=== PATIENT | female | born 1935 | race Caucasian/White ===

== ENCOUNTER → 2017-02-22 | Outpatient (CLI) | payer MEDICARE, BC ==
[~2017-02-22] MED LIST: ACTOS15 MG PO; ACTOS30 MG; ADVIL 200MG TA200 MG PO; ADVIL200 MG PO; ALLEGRA 180MG180 MG PO; AMBIEN 10MG10 MG PO; AMBIEN10 MG PO; APRESOLINE 10MG10 MG PO; ASPIRIN 81M81 MG/TA2 PO; ASPIRIN E.C. 8181 MG PO; CALCIUM 600-D 61 TAB PO; CARAFATE 1GM1 G PO; CARAFATE1 GM PO; CATAFLAM50 MG PO; CIPRO 500MG TA500 MG PO; CITALOPRAM20 MG PO; CLEOCIN HCL300 MG PO; CLONAZEPAM0.5 MG PO; COGENTIN .0.5 MG/TAB PO; COGENTIN0.5 MG PO; COLACE 100100 MG/CAP PO; COSAMIN ASU 2001 CAP PO; COSAMIN DS 4001 TAB PO; CRESTOR5 MG PO; DESYREL 100MG100 MG PO; DEXILANT60 MG PO; DITROPAN 5MG TAB5 MG PO; ELDEPRYL 5MG5 MG/CAP PO; ENALAPRIL10 MG PO; FOSAMAX 70MG TA70 MG PO; FOSAMAX70 MG PO; GLUCOPHAGE500 MG/TAB PO; GLUCOSAMINE & C1 CAP PO; GLUCOSAMINE & C1 TAB PO; HCTZ 25MG TAB25 MG PO; HCTZ 25MG25 MG PO; IMODIUM 2MG CAPS2 MG PO; IRON324 M1 PO; K-DUR 10 MEQ T10 MEQ PO; KLONOPIN 0.5MG0.5 MG PO; LEXAPRO10 MG PO; LIPITOR 10MG10 MG PO; LIPITOR 40MG TA40 MG PO; LOMOTIL 0.025 M1 TAB PO; LORTAB 5/500 501 TAB PO; MACRODANTIN25 MG PO; MACRODANTIN50 MG/CA1 PO; MILK OF MA400 MG/52 PO; MIRALAX PA17 GM/Dose PO; MIRAPEX0.5 MG PO; MULTI VITAMINS1 TAB PO; MULTI-VITAMIN W1 TA2 PO; MULTIPLE VITAMI1 CAP PO; MULTIVITAMIN1 CTB PO; NATURAL E400 IU PO; NATURE'S BLEND400 IU PO; NEXIUM 40MG40 MG PO; NITROSTAT0.4 MG/TAB SL; NORCO 325 MG-51 TAB PO; OXYBUTYNIN10 MG PO; PHENERGAN 25 TA25 MG PO; PRAMPEXOLE PO; PREVACID 15MG15 M1; PREVACID 15MG15 M1 PO; PRILOTC PO; PROBIOTIC FORMU1 CAP PO; RISPERDAL2 MG PO; ROXICODONE 55 MG/TAB PO; STOOL SOFTENER100 M1 PO; SUCRALFATE PO; SYNTHROID0.05 MG/TA PO; TRAZODONE50 MG PO; TYLENOL 325MG325 MG PO; ULTRAM 50MG TAB50 MG PO; VASOTEC 10M10 MG/TAB PO; VIACTIV CALCIUM1 CTB PO; VIACTIV CARAMEL PO; VITAMIN D 400400 IU PO; VITAMIN D3400 IU PO; VITAMIN E1000 U/CAP PO; Vitamin E TP; ZOFRAN 4MG T4 MG/TAB PO; ZYRTEC5 M1 PO; [UNRECOGNIZED DRUG - OTHER] PO; [UNRECOGNIZED DRUG - OTHER] PO
== END ==
LOC: SUN.DIA 11:00
DX: Z68.24 Body mass index [BMI] 24.0-24.9, adult (principal); Z71.3 Dietary counseling and surveillance; E78.5 Hyperlipidemia, unspecified; G20 Parkinson's disease; F41.8 Other specified anxiety disorders; F41.0 Panic disorder [episodic paroxysmal anxiety]
CPT/HCPCS: G0108

== ENCOUNTER 2017-03-08 18:41 | Observation (INO) | payer MEDICARE, BC ==
[~2017-03-08] VITALS: Ht 162.6 cm; Wt 67.5 kg
[~2017-03-08 18:41] MED LIST changes: -ALLEGRA 180MG180 MG PO; -APRESOLINE 10MG10 MG PO; -CALCIUM 600-D 61 TAB PO; -CLEOCIN HCL300 MG PO; -GLUCOSAMINE & C1 TAB PO; -MIRALAX PA17 GM/Dose PO; -NITROSTAT0.4 MG/TAB SL; -ROXICODONE 55 MG/TAB PO
[2017-03-08 19:22] LABS: BASO % 0.3 % (0.0-2.0); EOS % 1.1 % (0-4.0); GRAN # 2.5 (1.4-6.5); GRAN % 68.8 % (42.2-75.2); HEMATOCRIT 31.7 % (37.0-47.0); HEMOGLOBIN 10.3 g/dl (12.5-16.0); LYMPH # 0.7 (1.2-3.4); LYMPH % 19.5 % (20.0-51.0); MEAN CELL VOLUME 88 fl (80.0-100.0); MEAN CORPUSCULAR HEMOGLOBIN 29 pg (27.0-31.0); MEAN CORPUSCULAR HGB CONC 33 g/dl (33.0-37.0); MEAN PLATELET VOLUME 10.2 fl (7.4-10.4); MONO # 0.4 (0.1-0.6); MONO % 9.8 % (1.7-9.3); PLATELET COUNT 232 K/mm3 (130-400); RED BLOOD COUNT 3.59 M/mm3 (4.10-5.30); REDCELL DISTRIBUTION WIDTH-CV 15.2 % (11.5-14.5); WHITE BLOOD COUNT 3.7 K/mm3 (4.8-10.8)
[2017-03-08 19:26] LABS: PROTHROMBIN TIME 11.5 SECONDS (9.7-12.8)
[2017-03-08 19:30] LABS: ALANINE AMINOTRANSFERASE 35 U/L (9-52); ALBUMIN 3.5 gm/dL (3.5-5.0); ALKALINE PHOSPHATASE 73 U/L (50-136); ANION GAP 10 mmol/L (7-16); BILIRUBIN,TOTAL 0.4 mg/dL (0.0-1.0); BLOOD UREA NITROGEN 8 mg/dL (7-17); CALCIUM 8.6 mg/dL (8.4-10.2); CARBON DIOXIDE 23 mmol/L (22-30); CHLORIDE 100 mmol/L (98-107); CREATININE, serum 0.75 mg/dL (0.52-1.25); GLUCOSE 98 mg/dL (74-106); LIPASE 39 U/L (23-300); POTASSIUM 4.3 mmol/L (3.4-5.0); SODIUM 133 mmol/L (137-145); TOTAL PROTEIN 5.6 gm/dL (6.4-8.2)
[2017-03-08 19:41] LABS: B-TYPE NATRIURETIC PEPTIDE 71 pg/mL (0-450); TROPONIN-I < 0.012 ng/mL (0.000-0.034)
[2017-03-08] MEDS ORDERED: VASOTEC 10M10 MG/TAB PO (21:03)
[2017-03-08] MEDS ORDERED: ALLEGRA 180MG180 MG PO (21:12)
[2017-03-08] MEDS ORDERED: RISPERDAL2 MG PO (21:13)
[2017-03-08] MEDS ORDERED: AMBIEN 10MG10 MG PO (21:13)
[2017-03-08] MEDS ORDERED: MIRAPEX0.5 MG PO (21:14)
[2017-03-08] MEDS ORDERED: DEXILANT60 MG PO (21:15)
[2017-03-08 21:48] VITALS: BP 171/80; PULSE 91; TEMP 97.7
[2017-03-08] MEDS ORDERED: ROXICODONE 55 MG/TAB PO (23:05)
[2017-03-08 23:16] LABS: PARTIAL THROMBOPLASTIN TIME 32.9 SECONDS (26.0-37.0)
[2017-03-08 23:35] LABS: MAGNESIUM 2.1 mg/dL (1.6-2.3)
[2017-03-09] VITALS (11 sets, daily range): BP systolic 128–161; BP diastolic 50–89; PULSE 87–117; TEMP 97.4–98.8
[2017-03-09 01:28] LABS: PH 7 (5-8); SQUAMOUS EPITHELIAL 0-2 /hpf; URINE APPEARANCE Clear; URINE BACTERIA Rare /hpf; URINE BILIRUBIN Negative (NEGATIVE); URINE BLOOD Negative (NEGATIVE); URINE COLOR Yellow; URINE GLUCOSE Negative (NEGATIVE); URINE KETONE Negative (NEGATIVE); URINE RBC 0-2 /hpf; URINE UROBILINOGEN Negative (NEGATIVE); URINE WBC 0-2 /hpf
[2017-03-09 06:56] LABS: CHOLESTEROL 92 mg/dL (120-200); HDL CHOLESTEROL 62 mg/dL; LDL CHOLESTEROL 14 mg/dL; TRIGLYCERIDE 81 mg/dL
[2017-03-09 07:03] LABS: TROPONIN-I < 0.012 ng/mL (0.000-0.034)
[2017-03-10 02:50] VITALS: BP 151/72; PULSE 93; TEMP 98.1
[2017-03-10 06:44] LABS: MEAN CELL VOLUME 89 fl (80.0-100.0); MEAN CORPUSCULAR HGB CONC 32 g/dl (33.0-37.0); MEAN PLATELET VOLUME 10.1 fl (7.4-10.4); PLATELET COUNT 209 K/mm3 (130-400); RED BLOOD COUNT 3.48 M/mm3 (4.10-5.30); REDCELL DISTRIBUTION WIDTH-CV 15.3 % (11.5-14.5); WHITE BLOOD COUNT 3.8 K/mm3 (4.8-10.8)
[2017-03-10 06:54] LABS: HEMOGLOBIN 9.9 g/dl (12.5-16.0); MEAN CORPUSCULAR HEMOGLOBIN 28 pg (27.0-31.0)
[2017-03-10 07:01] LABS: CALCIUM 8.5 mg/dL (8.4-10.2); CREATININE, serum 0.56 mg/dL (0.52-1.25); MAGNESIUM 2.1 mg/dL (1.6-2.3); PHOSPHOROUS 3.5 mg/dL (2.5-4.5); POTASSIUM 3.8 mmol/L (3.4-5.0)
[2017-03-10 08:02] VITALS: BP 155/68; PULSE 89; TEMP 97.9
[2017-03-10 11:20] VITALS: BP 141/84; PULSE 93; TEMP 98.4
[2017-03-10] MEDS ORDERED: APRESOLINE 10MG10 MG PO (13:52)
[2017-03-10] MEDS ORDERED: NITROSTAT0.4 MG/TAB SL (14:26)
== END 2017-03-10 15:33 | disposition home or self-care (01) ==
LOC: COL.ER 18:41 → MEDICAL 19:52
PROVIDERS: Emergency Medicine; Internal Medicine; Nurse Practitioner Family
DX: R07.9 Chest pain, unspecified (principal); I49.5 Sick sinus syndrome; R55 Syncope and collapse; Z95.818 Presence of other cardiac implants and grafts; E11.9 Type 2 diabetes mellitus without complications; Z79.84 Long term (current) use of oral hypoglycemic drugs; I10 Essential (primary) hypertension; E78.5 Hyperlipidemia, unspecified; G89.29 Other chronic pain; M54.9 Dorsalgia, unspecified; E03.9 Hypothyroidism, unspecified; G20 Parkinson's disease; M81.0 Age-related osteoporosis without current pathological fracture; R35.0 Frequency of micturition; Z87.440 Personal history of urinary (tract) infections; K64.9 Unspecified hemorrhoids; M54.16 Radiculopathy, lumbar region; F41.9 Anxiety disorder, unspecified; Z96.89 Presence of other specified functional implants; F32.9 Major depressive disorder, single episode, unspecified
CPT/HCPCS: A9502; G0378; J1650; J2270; J2785; J7030

== ENCOUNTER 2017-04-02 08:59 | Day surgery (SDC) | payer MEDICARE, BC ==
[~2017-04-02] VITALS: Ht 162.7 cm; Wt 65.0 kg
[~2017-04-02 08:59] MED LIST changes: +ALLEGRA 180MG180 MG PO; +APRESOLINE 10MG10 MG PO; +NITROSTAT0.4 MG/TAB SL; +ROXICODONE 55 MG/TAB PO
[2017-04-02 10:00] VITALS: BP 147/77; PULSE 100; TEMP 98
[2017-04-02 10:11] LABS: MEAN CELL VOLUME 89 fl (80.0-100.0); MEAN CORPUSCULAR HGB CONC 32 g/dl (33.0-37.0); PLATELET COUNT 258 K/mm3 (130-400); RED BLOOD COUNT 3.81 M/mm3 (4.10-5.30); REDCELL DISTRIBUTION WIDTH-CV 15.8 % (11.5-14.5); WHITE BLOOD COUNT 4.8 K/mm3 (4.8-10.8)
[2017-04-02 10:12] LABS: HEMATOCRIT 33.9 % (37.0-47.0); MEAN CORPUSCULAR HEMOGLOBIN 29 pg (27.0-31.0)
[2017-04-02 10:15] LABS: PROTHROMBIN TIME 11.5 SECONDS (9.7-12.8)
[2017-04-02] MEDS ORDERED: APRESOLINE 10MG10 MG PO (10:26)
[2017-04-02] MEDS ORDERED: IMODIUM 2MG CAPS2 MG PO (10:28)
[2017-04-02] MEDS ORDERED: MIRALAX PA17 GM/Dose PO (10:34)
[2017-04-02] MEDS ORDERED: GLUCOSAMINE & C1 TAB PO (10:34)
[2017-04-02] MEDS ORDERED: CALCIUM 600-D 61 TAB PO (10:35)
[2017-04-02 10:50] LABS: CALCIUM 9.4 mg/dL (8.4-10.2); CREATININE, serum 0.63 mg/dL (0.52-1.25); POTASSIUM 4.1 mmol/L (3.4-5.0)
[2017-04-02 12:06] VITALS: BP 144/81; PULSE 91
[2017-04-02 14:05] VITALS: BP 164/89; PULSE 89
[2017-04-02 19:52] VITALS: BP 121/68; PULSE 96; TEMP 98
[2017-04-02 23:29] VITALS: BP 98/54; PULSE 89; TEMP 97.6
[2017-04-03 03:41] VITALS: BP 114/56; PULSE 83; TEMP 97.9
[2017-04-03 07:58] VITALS: BP 158/80; PULSE 100; TEMP 97.6
[2017-04-03] MEDS ORDERED: CLEOCIN HCL300 MG PO (09:59)
== END 2017-04-03 10:35 | disposition home or self-care (01) ==
LOC: COL.CAR 08:59 → MEDICAL 14:31 → PEDS 14:31 → COL.CAR 04-03 10:35
PROVIDERS: Internal Medicine Interventional Cardiology
DX: I45.5 Other specified heart block (principal); I49.5 Sick sinus syndrome; R60.9 Edema, unspecified
CPT/HCPCS: OP; C1785; C1898; J0690; J2250; J3010; J7030

== ENCOUNTER → 2017-05-07 | Outpatient (CLI) | payer MEDICARE, BC ==
[~2017-05-07] MED LIST changes: +CALCIUM 600-D 61 TAB PO; +CLEOCIN HCL300 MG PO; +GLUCOSAMINE & C1 TAB PO; +MIRALAX PA17 GM/Dose PO
== END ==
LOC: COL.CARD 09:13
DX: R06.02 Shortness of breath (principal)

== ENCOUNTER → 2017-11-01 | Outpatient (CLI) | payer MEDICARE, BC | LOC: SUN.DIA 08:46 | DX: E11.9 Type 2 diabetes mellitus without complications (principal); E78.5 Hyperlipidemia, unspecified; Z68.23 Body mass index [BMI] 23.0-23.9, adult; Z71.3 Dietary counseling and surveillance | CPT/HCPCS: G0108 ==

== ENCOUNTER → 2018-01-20 | Outpatient (CLI) | payer MEDICARE, BC | LOC: COL.RAD 11:30 | DX: M47.816 Spondylosis without myelopathy or radiculopathy, lumbar region (principal); M25.552 Pain in left hip; M25.551 Pain in right hip ==

== ENCOUNTER → 2018-05-02 | Outpatient (CLI) | payer MEDICARE, BC | LOC: SUN.DIA | DX: E11.9 Type 2 diabetes mellitus without complications (principal); E78.5 Hyperlipidemia, unspecified | CPT/HCPCS: G0108 ==

== ENCOUNTER 2018-06-05 09:13 | Observation (INO) | payer MEDICARE, BC ==
[~2018-06-05] VITALS: Ht 162.6 cm; Wt 66.5 kg
[2018-06-05] MEDS ORDERED: ANTIVERT 25MG25 MG PO (09:43)
[2018-06-05 09:46] LABS: BASO % 0.2 % (0.0-2.0); GRAN # 2.9 (1.4-6.5); GRAN % 70.9 % (42.2-75.2); HEMATOCRIT 31.1 % (37.0-47.0); HEMOGLOBIN 9.8 g/dl (12.5-16.0); LYMPH # 0.7 (1.2-3.4); MEAN CELL VOLUME 94 fl (80.0-100.0); MEAN CORPUSCULAR HEMOGLOBIN 30 pg (27.0-31.0); MEAN CORPUSCULAR HGB CONC 32 g/dl (33.0-37.0); MEAN PLATELET VOLUME 10.6 fl (7.4-10.4); MONO # 0.4 (0.1-0.6); MONO % 9.7 % (1.7-9.3); PLATELET COUNT 190 K/mm3 (130-400); RED BLOOD COUNT 3.31 M/mm3 (4.10-5.30); REDCELL DISTRIBUTION WIDTH-CV 13.8 % (11.5-14.5)
[2018-06-05] MEDS ORDERED: TOPROL XL 25MG25 MG PO (09:47)
[2018-06-05] MEDS ORDERED: PROBIOTIC-MAJOR PO (09:50)
[2018-06-05 10:00] LABS: PROTHROMBIN TIME 11.6 SECONDS (9.7-12.8)
[2018-06-05 10:01] LABS: ALANINE AMINOTRANSFERASE 35 U/L (9-52); ALKALINE PHOSPHATASE 65 U/L (50-136); ANION GAP 9 mmol/L (7-16); AST,SGOT 35 U/L (15-37); BILIRUBIN,TOTAL 0.2 mg/dL (0.0-1.0); BLOOD UREA NITROGEN 19 mg/dL (7-17); CALCIUM 8.4 mg/dL (8.4-10.2); CARBON DIOXIDE 25 mmol/L (22-30); CHLORIDE 103 mmol/L (98-107); CREATINE KINASE 38 U/L (30-135); CREATININE, serum 0.73 mg/dL (0.52-1.25); GLUCOSE 89 mg/dL (74-106); LIPASE 30 U/L (23-300); POTASSIUM 4.4 mmol/L (3.4-5.0); SODIUM 136 mmol/L (137-145); TOTAL PROTEIN 5.3 gm/dL (6.4-8.2)
[2018-06-05 10:13] LABS: TROPONIN-I < 0.012 ng/mL (0.000-0.034)
[2018-06-05] MEDS ORDERED: ROXICODONE 55 MG/TAB PO (13:52)
[2018-06-05 13:56] VITALS: BP 149/71; PULSE 100; TEMP 98
[2018-06-05 14:33] LABS: TROPONIN-I < 0.012 ng/mL (0.000-0.034)
[2018-06-05 16:37] VITALS: BP 173/81; PULSE 76; TEMP 97.7
[2018-06-05 16:49] VITALS: BP 143/70
[2018-06-05 19:40] VITALS: BP 116/57; PULSE 81; TEMP 98.4
[2018-06-05 23:21] VITALS: BP 100/47; PULSE 77; TEMP 98
[2018-06-06 03:22] VITALS: BP 135/60; PULSE 81; TEMP 98
[2018-06-06 06:45] LABS: BASO % 0.3 % (0.0-2.0); EOS # 0.1 (0.0-0.7); EOS % 1.3 % (0-4.0); GRAN # 2.8 (1.4-6.5); GRAN % 71.5 % (42.2-75.2); LYMPH # 0.7 (1.2-3.4); LYMPH % 17.5 % (20.0-51.0); MEAN CELL VOLUME 93 fl (80.0-100.0); MEAN CORPUSCULAR HGB CONC 32 g/dl (33.0-37.0); MEAN PLATELET VOLUME 10.8 fl (7.4-10.4); MONO # 0.4 (0.1-0.6); MONO % 9.1 % (1.7-9.3); PLATELET COUNT 194 K/mm3 (130-400); RED BLOOD COUNT 3.16 M/mm3 (4.10-5.30)
[2018-06-06 06:53] LABS: HEMATOCRIT 29.4 % (37.0-47.0); HEMOGLOBIN 9.5 g/dl (12.5-16.0); MEAN CORPUSCULAR HEMOGLOBIN 30 pg (27.0-31.0)
[2018-06-06 07:15] LABS: CALCIUM 8.3 mg/dL (8.4-10.2); CHOLESTEROL RISK RATIO 1.4; CREATININE, serum 0.64 mg/dL (0.52-1.25); POTASSIUM 4.2 mmol/L (3.4-5.0)
[2018-06-06 07:46] VITALS: BP 153/84; PULSE 94; TEMP 98
[2018-06-06] MEDS ORDERED: VASOTEC 10M10 MG/TAB PO (10:55)
[2018-06-06 11:54] VITALS: BP 145/75; PULSE 89; TEMP 98.1
== END 2018-06-06 17:56 | disposition home or self-care (01) ==
LOC: COL.ER 09:13 → MEDICAL 11:26
PROVIDERS: Emergency Medicine; Physician Assistant
DX: R55 Syncope and collapse (principal); R09.02 Hypoxemia; K52.9 Noninfective gastroenteritis and colitis, unspecified; I10 Essential (primary) hypertension; I95.9 Hypotension, unspecified; D64.9 Anemia, unspecified; E11.9 Type 2 diabetes mellitus without complications; I49.5 Sick sinus syndrome; F32.9 Major depressive disorder, single episode, unspecified; G20 Parkinson's disease; E78.5 Hyperlipidemia, unspecified; E03.9 Hypothyroidism, unspecified; K21.9 Gastro-esophageal reflux disease without esophagitis; G89.29 Other chronic pain; M54.9 Dorsalgia, unspecified; M81.0 Age-related osteoporosis without current pathological fracture; Z79.84 Long term (current) use of oral hypoglycemic drugs; Z79.3 Long term (current) use of hormonal contraceptives; Z79.82 Long term (current) use of aspirin; Z90.710 Acquired absence of both cervix and uterus; Z90.49 Acquired absence of other specified parts of digestive tract; Z95.0 Presence of cardiac pacemaker; Z88.0 Allergy status to penicillin; Z88.2 Allergy status to sulfonamides; Z82.49 Family history of ischemic heart disease and other diseases of the circulatory system
CPT/HCPCS: G0378; G8978-GP; G8979-GP; J2405; J7030; Q9967

== ENCOUNTER → 2018-08-08 | Outpatient (CLI) | payer MEDICARE, BC ==
[~2018-08-08] MED LIST changes: +ANTIVERT 25MG25 MG PO; +PROBIOTIC-MAJOR PO; +TOPROL XL 25MG25 MG PO
== END ==
LOC: MC.RAD 09:59
DX: Z12.31 Encounter for screening mammogram for malignant neoplasm of breast (principal)

== ENCOUNTER 2019-01-12 16:17 | Observation (INO) | payer MEDICARE, BC ==
[~2019-01-12] VITALS: Ht 165.1 cm; Wt 70.0 kg
[2019-01-12 17:06] LABS: BASO % 0.2 % (0.0-2.0); EOS % 0.7 % (0-4.0); GRAN # 4.5 (1.4-6.5); GRAN % 73.8 % (42.2-75.2); LYMPH # 0.9 (1.2-3.4); LYMPH % 14.9 % (20.0-51.0); MEAN CELL VOLUME 92 fl (80.0-100.0); MEAN CORPUSCULAR HGB CONC 31 g/dl (33.0-37.0); MONO # 0.6 (0.1-0.6); MONO % 10.2 % (1.7-9.3); PLATELET COUNT 170 K/mm3 (130-400); RED BLOOD COUNT 3.46 M/mm3 (4.10-5.30); REDCELL DISTRIBUTION WIDTH-CV 15.6 % (11.5-14.5)
[2019-01-12 17:08] LABS: HEMATOCRIT 31.7 % (37.0-47.0); HEMOGLOBIN 9.8 g/dl (12.5-16.0); MEAN CORPUSCULAR HEMOGLOBIN 28 pg (27.0-31.0)
[2019-01-12 17:13] LABS: PROTHROMBIN TIME 11.8 SECONDS (9.7-12.8)
[2019-01-12 17:25] LABS: ALANINE AMINOTRANSFERASE 31 U/L (9-52); ALBUMIN 3.3 gm/dL (3.5-5.0); ALKALINE PHOSPHATASE 73 U/L (50-136); ANION GAP 7 mmol/L (7-16); AST,SGOT 88 U/L (15-37); BILIRUBIN,TOTAL 0.2 mg/dL (0.0-1.0); BLOOD UREA NITROGEN 30 mg/dL (7-17); CALCIUM 8.7 mg/dL (8.4-10.2); CARBON DIOXIDE 25 mmol/L (22-30); CHLORIDE 100 mmol/L (98-107); CREATININE, serum 1.62 (0.52-1.25); GLUCOSE 97 mg/dL (74-106); POTASSIUM 5.1 mmol/L (3.4-5.0); SODIUM 133 mmol/L (137-145); TOTAL PROTEIN 5.7 gm/dL (6.4-8.2)
[2019-01-12 17:32] LABS: C-REACTIVE PROTEIN < 0.5 mg/dL (0.0-0.9)
[2019-01-12] MEDS ORDERED: ZYLOPRIM 300MG300 MG PO (17:32)
[2019-01-12] MEDS ORDERED: OMNICEF 300MG300 MG PO (17:38)
[2019-01-12] MEDS ORDERED: ZOLOFT 100MG100 MG PO (17:39)
[2019-01-12] MEDS ORDERED: TIROSINT50 MC1 PO (17:51)
[2019-01-12] MEDS ORDERED: ZESTRIL 20MG TA20 MG PO (17:52)
[2019-01-12] MEDS ORDERED: JANTOVEN6 MG (17:53)
[2019-01-12] MEDS ORDERED: COUMADIN 1MG1 MG/TAB PO (17:53)
[2019-01-12] MEDS ORDERED: LOPRESSOR 225 MG/TAB PO (21:28)
[2019-01-13] VITALS (7 sets, daily range): BP systolic 95–166; BP diastolic 40–72; PULSE 79–111; TEMP 97.4–98.7
[2019-01-13 05:50] LABS: BASO % 0.2 % (0.0-2.0); EOS # 0.1 (0.0-0.7); EOS % 1.2 % (0-4.0); GRAN # 2.9 (1.4-6.5); GRAN % 70.6 % (42.2-75.2); LYMPH # 0.7 (1.2-3.4); MEAN CELL VOLUME 92 fl (80.0-100.0); MEAN CORPUSCULAR HGB CONC 31 g/dl (33.0-37.0); MEAN PLATELET VOLUME 10.9 fl (7.4-10.4); MONO # 0.5 (0.1-0.6); MONO % 11.8 % (1.7-9.3); PLATELET COUNT 164 K/mm3 (130-400); RED BLOOD COUNT 3.21 M/mm3 (4.10-5.30); REDCELL DISTRIBUTION WIDTH-CV 15.7 % (11.5-14.5)
[2019-01-13 06:00] LABS: HEMATOCRIT 29.5 % (37.0-47.0); MEAN CORPUSCULAR HEMOGLOBIN 28 pg (27.0-31.0)
[2019-01-13 06:01] LABS: CREATININE, serum 0.86 (0.52-1.25)
--- NOTE | 2019-01-13 07:10 | NUR ---
Received report from Devyn entered room to greet patient and daughter is noted to be at bedside, patient is just waking up. Does not voice any needs at this time. Call light is within reach.
--- NOTE | 2019-01-13 11:54 | NUR ---
Initial visit; Patient thanked [employer] Driver for looking in on her and wishing her well and assuring her someone from the [facility] will offer her [facility] if she is hospitalized over night.
--- NOTE | 2019-01-13 13:11 | NUR ---
SW attended clinical rounds to discuss discharge planning. Patient lives at home with her . Patient does not use any home health services but is interested in receiving those services when she is discharged. Patient will be seen by PT and OT. SW will follow up with patient and family after speaking with PT/OT. Patient uses a walker for mobility but no other DME is reported. Patient's PCP is Dr Lott and she obtains prescriptions from [facility]. Patient does have a DPOA in EMR. SW will follow up with patient later this afternoon.
--- NOTE | 2019-01-13 18:59 | NUR ---
Patient is sitting up in chair eating supper. Has been up to restroom and back to recliner using walker and gait belt. Tolerating well. Has minimal pain complaints after receiving PRN norco, otherwise patient has an uneventful shift. Report given to KELLY Reich.
--- NOTE | 2019-01-13 19:00 | NUR ---
Report received from KELLY Blanchard.
--- NOTE | 2019-01-13 19:26 | NUR ---
Sitting in recliner with [id number] at bedside. Assessment complete. Lungs clear. Heart sounds normal. Bowels active x4. Pulses present. Bilateral lower leg edema +2. Alert x3. Difficulty with day of week. Denies pain. Denies needs at this time. IV to left forearm infusing at 125ml/hr without complications. Call light in reach.
--- NOTE | 2019-01-13 19:45 | NUR ---
Up to restroom and returned to bed.
--- NOTE | 2019-01-13 21:01 | NUR ---
Patient requested mirlax for constipation. Provided PRN order.
[2019-01-14] VITALS (7 sets, daily range): BP systolic 125–169; BP diastolic 51–78; PULSE 70–104; TEMP 97.5–98.7
--- NOTE | 2019-01-14 00:10 | NUR ---
Patient reports feeling "floaty." Blood pressure checked at stable. Reports nausea. Provided with PRN zofran.
--- NOTE | 2019-01-14 02:04 | NUR ---
Verbal order per Alejandra, CONSUMER LENDING MANAGER discontinue fluids IV per patient and family request.
--- NOTE | 2019-01-14 02:44 | NUR ---
Patient reports nausea. Was provided with zofran earlier for nausea. Now feeling "like stuff is crawling on me and I am seeing awful things." Spoke with RYLEE Roberts. Adding order for benadryl to help rest and relieve symptoms. Will closely monitor.
[2019-01-14 06:26] LABS: BASO % 0.2 % (0.0-2.0); LYMPH # 0.7 (1.2-3.4); LYMPH % 16.9 % (20.0-51.0); MEAN CELL VOLUME 90 fl (80.0-100.0); MEAN CORPUSCULAR HGB CONC 31 g/dl (33.0-37.0); MONO # 0.4 (0.1-0.6); MONO % 9.7 % (1.7-9.3); PLATELET COUNT 174 K/mm3 (130-400); RED BLOOD COUNT 3.56 M/mm3 (4.10-5.30); REDCELL DISTRIBUTION WIDTH-CV 15.5 % (11.5-14.5)
[2019-01-14 06:31] LABS: CALCIUM 8.8 mg/dL (8.4-10.2); CREATININE, serum 0.62 (0.52-1.25)
[2019-01-14 06:32] LABS: HEMATOCRIT 32.2 % (37.0-47.0); HEMOGLOBIN 9.9 g/dl (12.5-16.0); MEAN CORPUSCULAR HEMOGLOBIN 28 pg (27.0-31.0)
--- NOTE | 2019-01-14 06:39 | NUR ---
Patient up to restroom several times throughout night. Reports seeing objects and hearing "beeps." Reoriented patient when episodes of confusion. Also reports nausea. Giving zofran as ordered and crackers with sprite. Son remained at bedside throughout night. Denies needs this AM. Call light in reach.
--- NOTE | 2019-01-14 07:04 | NUR ---
Report given to KELLY Tipton.
--- NOTE | 2019-01-14 09:00 | NUR ---
Pt is A+Ox3, pleasant, denies pain, SOB, nausea. Physical assessment completed, pt has 2 L oxygen applie via NC. INT to LFA free of redness, swelling. Pt had two short (30-second?) episodes this morning where she became confused, once this RN was adjusting her gate belt and pt suddenly stared at me , swiped at my hands and stated I was swearing at her, then paused and stated, "oh dear, I think I'm having one of my bad dreams again". Pt snapped out of it suddenly. No further needs at this time, pt assisted to bathroom to void and have small BM, family at bedside.
--- NOTE | 2019-01-14 10:26 | NUR ---
SAWYER met with the patient and her son James to discuss home health options. SAWYER provided a list of Medicare.gov's home health providers in [place]. The patient reports she wants to look over the list and then make a decision. SAWYER will continue to follow.
--- NOTE | 2019-01-14 14:11 | NUR ---
SPO2 85% ON 1.5 LPM NC INCREASED TO 2 LPM NC 92%
--- NOTE | 2019-01-14 18:00 | NUR ---
Through shift pt has had no hallucinations. She is weak but able to ambulate herself to the bathroom, she voids every 30 minutes almost on the clock. She had three small dry formed BM;s his morning. Oxygen still applied at 2 L, pt did not tolerate being weaned to 1.5 L. Vitals stable otherwise. She has c/o nausea but when asked to clarify it's not nausea but an aching pain in her mid upper abdomen, resolved with food. This RN suggested saltine crackers for acid and pt refused stating, "they get too mushy". INT free of redness, swelling at site. Neuro has remained unchanged from this morning, no further confusion or hallucinations for this RN. Family at bedside throughout day, at bedside now with call light in reach, no further needs
--- NOTE | 2019-01-14 20:11 | NUR ---
Up to restroom and returned to bed. Assessment complete. Lungs clear. Heart sounds normal. Bowels active x4. Pulses present throughtout. Bilateral lower leg edema +2. Denies pain. Reports "nausea." Described as burning sensation upper middle ABD. Refused intervention to relieve symptoms. Denies any other pain or discomfort. Son at bedside. Denies needs. Call light in reach. Will monitor.
--- NOTE | 2019-01-14 22:32 | NUR ---
Up to restroom and returned to bed. Denies needs. Denies pain. Call light in reach.
--- NOTE | 2019-01-15 00:56 | NUR ---
Resting in bed with son at bedside. Call light in reach.
[2019-01-15 02:37] LABS: COLLECTION METHOD CLEAN CATCH
[2019-01-15 02:52] LABS: MUCOUS Present /lpf; PH 7 (5-8); SQUAMOUS EPITHELIAL None Seen /hpf; URINE APPEARANCE Clear; URINE BACTERIA None Seen /hpf; URINE BILIRUBIN Negative (NEGATIVE); URINE BLOOD Negative (NEGATIVE); URINE COLOR Yellow; URINE GLUCOSE Negative (NEGATIVE); URINE KETONE Negative (NEGATIVE); URINE LEUKOCYTE ESTERASE Negative (NEGATIVE); URINE NITRATE Negative (NEGATIVE); URINE PROTEIN(semi-quant) Negative (NEGATIVE); URINE UROBILINOGEN Negative (NEGATIVE)
[2019-01-15 03:47] VITALS: BP 153/66; PULSE 63; TEMP 98.3
--- NOTE | 2019-01-15 03:59 | NUR ---
Up to restroom and returned to bed. Denies needs. Denies pain. Call light in reach.
--- NOTE | 2019-01-15 06:16 | NUR ---
Up to restroom several times throughout shift. UA completed. Uneventful night. Resting in bed this AM with son at bedside. Denies needs. Call light in reach.
--- NOTE | 2019-01-15 07:02 | NUR ---
Report given to KELLY Tipton and KELLY Izaguirre
[2019-01-15 08:39] LABS: BASO % 0.5 % (0.0-2.0); EOS % 0.2 % (0-4.0); GRAN # 3.3 (1.4-6.5); GRAN % 78.4 % (42.2-75.2); LYMPH # 0.5 (1.2-3.4); LYMPH % 12.1 % (20.0-51.0); MEAN CELL VOLUME 89 fl (80.0-100.0); MEAN CORPUSCULAR HGB CONC 31 g/dl (33.0-37.0); MEAN PLATELET VOLUME 10.6 fl (7.4-10.4); MONO # 0.3 (0.1-0.6); MONO % 8.1 % (1.7-9.3); PLATELET COUNT 168 K/mm3 (130-400); RED BLOOD COUNT 3.42 M/mm3 (4.10-5.30); REDCELL DISTRIBUTION WIDTH-CV 15.7 % (11.5-14.5)
[2019-01-15 08:43] LABS: HEMATOCRIT 30.5 % (37.0-47.0); HEMOGLOBIN 9.5 g/dl (12.5-16.0); MEAN CORPUSCULAR HEMOGLOBIN 28 pg (27.0-31.0)
[2019-01-15 08:53] LABS: CALCIUM 8.9 mg/dL (8.4-10.2); CREATININE, serum 0.65 (0.52-1.25); POTASSIUM 4.3 mmol/L (3.4-5.0)
[2019-01-15 09:07] VITALS: BP 144/65; PULSE 81; TEMP 98.8
--- NOTE | 2019-01-15 10:21 | NUR ---
Pt sitting upright in chair, denies SOB. O2 at 92% on RA
[2019-01-15] MEDS ORDERED: NORCO 325 MG-51 TAB PO (11:20)
--- NOTE | 2019-01-15 12:00 | NUR ---
PATIENT WORKED WITH PHYSICAL THERAPY. PRIOR, PATIENT PUT ON ROOM AIR TO MONITOR OXYGEN FOR DISCHARGE. 88-90% ON ROOM AIR. 1L NC 97%, WITH 20 FT AMBULATION DROPPED TO 94% PER PHYSICAL THERAPY. WILL RECHECK ON ROOM AIR AGAIN.
--- NOTE | 2019-01-15 12:23 | NUR ---
SAWYER met with patient, son and her in room. SAWYER follow-up on Home health care options. Patient reports having a previous home health provider. SAWYER presented [email or web address] referral sheet. [facility]. SAWYER faxed referral and spoke with call center director to setup services. Fx [phone]. Notified family of [facility] today, Have plan to have DTR stay with her over night if HH can not come out today. NO additonal needs identified.
--- NOTE | 2019-01-15 13:00 | NUR ---
PATIENT ON ROOM AIR AND SATS 97%. PLANNING FOR DISCHARGE. MEDICATIONS REVIEWED. AND SON AT BEDSIDE. ALL QUESTIONS ANSWERED.
--- NOTE | 2019-01-15 15:08 | NUR ---
PATIENT DISCHARGE INSTRUCTIONS AND MEDICATIONS REVIEWED. PATIENT ESCORTED OUT BY THIS NURSE, VIA WHEELCHAIR. ALL QUESTIONS ANSWERED, NO OTHER NEEDS. ALL BELONGINGS TAKEN BY PATIENT AND FAMILY.
== END 2019-01-15 14:45 | disposition home or self-care (01) ==
LOC: COL.ER 16:17 → MEDICAL 17:10 → COL.ER 17:10 → MEDICAL 01-15 14:45
PROVIDERS: Family Medicine; Nurse Practitioner; Nurse Practitioner Family; Physician Assistant; ADMIT Hospitalist
DX: R41.82 Altered mental status, unspecified (principal); I10 Essential (primary) hypertension; J96.01 Acute respiratory failure with hypoxia; N17.9 Acute kidney failure, unspecified; E87.5 Hyperkalemia; D64.9 Anemia, unspecified; E11.8 Type 2 diabetes mellitus with unspecified complications; I49.5 Sick sinus syndrome; Z95.0 Presence of cardiac pacemaker; F32.9 Major depressive disorder, single episode, unspecified; G20 Parkinson's disease; E78.5 Hyperlipidemia, unspecified; K21.9 Gastro-esophageal reflux disease without esophagitis; G89.29 Other chronic pain; M54.9 Dorsalgia, unspecified; Z96.9 Presence of functional implant, unspecified; R53.81 Other malaise; Z90.49 Acquired absence of other specified parts of digestive tract; Z90.710 Acquired absence of both cervix and uterus; M81.0 Age-related osteoporosis without current pathological fracture; Z79.899 Other long term (current) drug therapy; Z79.82 Long term (current) use of aspirin; Z79.84 Long term (current) use of oral hypoglycemic drugs; Z88.1 Allergy status to other antibiotic agents; Z88.2 Allergy status to sulfonamides
CPT/HCPCS: 99232-AI; A9284; G0378; J1200; J2405; J7030

== ENCOUNTER 2019-05-09 09:45 | Outpatient (CLI) | payer MEDICARE, BC ==
[~2019-05-09] VITALS: Ht 165.1 cm; Wt 74.0 kg
[~2019-05-09 09:45] MED LIST changes: +COUMADIN 1MG1 MG/TAB PO; +JANTOVEN6 MG; +LOPRESSOR 225 MG/TAB PO; +OMNICEF 300MG300 MG PO; +TIROSINT50 MC1 PO; +ZESTRIL 20MG TA20 MG PO; +ZOLOFT 100MG100 MG PO; +ZYLOPRIM 300MG300 MG PO
[2019-05-09 10:35] VITALS: BP 141/69; PULSE 69; TEMP 98.5
[2019-05-09] MEDS ORDERED: NATURAL E400 IU PO (10:43)
[2019-05-09] MEDS ORDERED: VITAMIN D 400400 IU PO (10:45)
[2019-05-09] MEDS ORDERED: CALCIUM 600MG+D1 TAB PO (10:47)
[2019-05-09] MEDS ORDERED: PLAVIX 75MG TAB75 MG PO (11:23)
== END 2019-05-09 11:00 | disposition home or self-care (01) ==
LOC: EUO 09:45
DX: M81.0 Age-related osteoporosis without current pathological fracture (principal)
CPT/HCPCS: J0897

== ENCOUNTER 2019-11-27 13:04 | Outpatient (CLI) | payer MEDICARE ==
[~2019-11-27] VITALS: Ht 165.1 cm; Wt 76.4 kg
[~2019-11-27 13:04] MED LIST changes: +CALCIUM 600MG+D1 TAB PO; +PLAVIX 75MG TAB75 MG PO
[2019-11-27 13:43] VITALS: BP 112/54; PULSE 78; TEMP 97.9
[2019-11-27] MEDS ORDERED: NITROSTAT0.4 MG/TAB SL (13:49)
[2019-11-27] MEDS ORDERED: SYNTHROID0.05 MG/TA PO (13:50)
[2019-11-27] MEDS ORDERED: GLUCOPHAGE500 MG/TAB PO (13:52)
[2019-11-27] MEDS ORDERED: ANTIVERT 25MG25 MG PO (13:53)
[2019-11-27] MEDS ORDERED: NEURONTIN300 MG/CAP PO (13:55)
[2019-11-27] MEDS ORDERED: PRILOSEC 20MG20 MG PO (13:57)
[2019-11-27] MEDS ORDERED: PROLIA60 MG/ML SQ (13:59)
[2019-11-27] MEDS ORDERED: FERROUSAL325 MG PO (14:00)
[2019-11-27] MEDS ORDERED: METAMUCIL3.4 GM/DOS PO (14:02)
== END 2019-11-27 14:04 | disposition home or self-care (01) ==
LOC: EUO 13:04
DX: M81.0 Age-related osteoporosis without current pathological fracture (principal)
CPT/HCPCS: J0897